=== PATIENT | female | born 1970 | race Caucasian/White ===

== ENCOUNTER 2016-12-27 08:36 | Outpatient (CLI) | payer SELFPAY | END 2016-12-27 08:37 | disposition home or self-care (01) | LOC: LAB 08:36 | DX: Z01.89 Encounter for other specified special examinations (principal) | CPT/HCPCS: 36415 ==

== ENCOUNTER 2017-04-14 07:28 | Outpatient (CLI) | payer SELFPAY | END 2017-04-14 07:29 | disposition home or self-care (01) | LOC: LAB 07:28 | DX: Z01.89 Encounter for other specified special examinations (principal) | CPT/HCPCS: 36415 ==

== ENCOUNTER 2017-06-06 06:16 | Emergency (ER) | payer BC ==
[2017-06-06] MEDS ORDERED: ACETAMINOPHEN 325 MG TABLET PO STA (07:06)
--- NOTE | 2017-06-06 07:55 | XRAY Report ---
EXAM: CHEST RADIOGRAPHY EXAM DATE: 06/06/2017 07:40 AM. CLINICAL HISTORY: Cough and fever. COMPARISON: None. TECHNIQUE: 2 views. FINDINGS: Lungs/Pleura: No focal opacities evident. No pleural effusion. No pneumothorax. Normal volumes. Mediastinum: Heart and mediastinal contours are unremarkable. Other: None. IMPRESSION: Normal 2-view chest radiography for age. [facility] Referring Provider Line: [phone] SITE ID: [id number]
--- NOTE | 2017-06-06 08:16 | ED Physician Documentation ---
History of Present Illness - Stated complaint Stated Complaint: COUGH/FEVER/BODY ACHES - Chief complaint Chief Complaint: Resp - Additonal information Additional information: hx from pt 47 female to ER with 3 days of fever to 102.5 congestion, mylagias, productive cough, post -tussive nausea no leg edema denies preg Review of Systems Constitutional: reports: Fever, Chills, Myalgias, Fatigue Nose: reports: Congestion Respiratory: reports: Cough GI: reports: Nausea. 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 - Present Medications Home Medications: Ambulatory Orders Medication Instructions Recorded Confirmed Control Pill 1 tab PO DAILY 10/29/13 10/29/13 Benzonatate [Tessalon] 100 mg PO TID PRN #20 capsule 06/06/17 guaiFENesin/DEXTROMETHORPHAN 10 ml PO Q6H PRN #120 ml 06/06/17 [Robitussin Dm] - Allergies Allergies/Adverse Reactions: Allergies Allergy/AdvReac Type Severity Reaction Status Date / Time No Known Drug Allergies Allergy Verified 10/29/13 18:11 - Social History Does the pt smoke?: No Smoking Status: Never smoker Does the pt drink ETOH?: Yes Does the pt have substance abuse?: No - POLST Patient has POLST: No PD ED PE NORMAL - Vitals Vital signs reviewed: Yes - General General: Alert and oriented X 3 - Neck Neck: Supple, no meningeal sign - Cardiac Cardiac: RRR - Respiratory Respiratory: No respiratory distress, Clear bilaterally, Other (coarse but no focal wheeze or ronchi) - Abdomen Abdomen: Soft - Extremities Extremities: No edema, No calf tenderness / cord - Neuro Neuro: Alert and oriented X 3 Results - Vitals Vitals: Vital Signs - 24 hr 06/06/17 06:21 Temperature 38.0 C H Heart Rate 103 H Respiratory 18 Rate Blood Pressure 149/94 H O2 Saturation 98 Oxygen O2 Source Room air - Labs Labs: Laboratory Tests 06/06/17 06:47 Influenza A (Rapid) Negative Influenza B (Rapid) Negative Influenza Types A,B Ag - - Rads (name of study) CXR Radiology: See rad report (NACPD) PD MEDICAL DECISION MAKING - ED course ED course: neg flu neg CXR lieky viral will tx symptomatically Departure - Departure Disposition: 01 Home, Self Care Clinical Impression: Bronchitis Condition: Good Instructions: ED Viral Syndrome Prescriptions: Benzonatate [Tessalon] 100 mg PO TID PRN #20 capsule PRN Reason: to ease cough guaiFENesin/DEXTROMETHORPHAN [Robitussin Dm] 10 ml PO Q6H PRN #120 ml PRN Reason: Cough Comments: The flu swabs were negative and the chest xray did not show pneumonia. So this infection is likely viral That does not make you any less ill than if it was a bacterial infection such as pneumonia - but it does mean that antibiotics won't help I have prescribed some medication to ease your symptoms Forms: Activity restrictions
[2017-06-06] MEDS ORDERED: guaiFENesin/DEXTROMETHORPHAN 10 ML UDC PO STA (08:18)
[2017-06-06] MEDS ORDERED: BENZONATATE 100 MG CAPSULE PO STA (08:18)
[2017-06-06 09:00] VITALS: BP 133/105
== END 2017-06-06 09:01 | disposition home or self-care (01) ==
LOC: ED 06:16
DX: J40 Bronchitis, not specified as acute or chronic (principal)
CPT/HCPCS: 71046; 87275; 87276; 99283; A9270

== ENCOUNTER 2017-07-18 10:27 | Outpatient (CLI) | payer BC ==
--- NOTE | 2017-07-18 12:47 | Ultrasound Report ---
PELVIC ULTRASOUND: 07/18/2017 CLINICAL INDICATION: Dysmenorrhea. TECHNIQUE: Transabdominal pelvic ultrasound performed for global evaluation. Transvaginal pelvic ultrasound performed for detailed evaluation. Real-time scanning performed and static images obtained. FINDINGS: The uterus is anteverted, measuring 9.7 x 5.6 x 4.6 cm. The endometrium measures 11 mm. There is an anterior subserosal 1.8 x 1.5 x 1.5 cm leiomyoma, and a right lateral intramural 1.8 x 1.7 x 1.6 cm leiomyoma. The right ovary measures 2.2 x 1.9 x 1.6 cm, and appears unremarkable. The left ovary measures 3.3 x 3.4 x 2.1 cm, and contains a 1.8 cm hemorrhagic follicle. A small amount of free fluid is noted in the cul-de-sac. IMPRESSION: SMALL LEIOMYOMAS. HEMORRHAGIC LEFT OVARIAN FOLLICLE. SMALL AMOUNT OF FREE FLUID. TD: 07/18/2017 12:46
== END 2017-07-18 10:28 | disposition home or self-care (01) ==
LOC: DI 10:27
PROVIDERS: ATTEND Physician Assistant
DX: N94.6 Dysmenorrhea, unspecified (principal); D25.1 Intramural leiomyoma of uterus; D25.2 Subserosal leiomyoma of uterus
CPT/HCPCS: 76830; 76856

== ENCOUNTER 2017-07-21 07:42 | Outpatient (CLI) | payer SELFPAY | END 2017-07-21 07:43 | disposition home or self-care (01) | LOC: LAB 07:42 | DX: Z01.89 Encounter for other specified special examinations (principal) | CPT/HCPCS: 36415 ==

== ENCOUNTER 2017-11-14 15:32 | Outpatient (CLI) | payer BC ==
--- NOTE | 2017-11-14 16:26 | XRAY Report ---
Reason: R FOOT PAIN Procedure Date: 11/14/2017 Accession Number: [id number] / [id number] Procedure: XR - Foot 3 View RT CPT Code: FULL RESULT: EXAM: RIGHT FOOT RADIOGRAPHY EXAM DATE: 11/14/2017 04:06 PM. CLINICAL HISTORY: R FOOT PAIN. COMPARISON: None. TECHNIQUE: 3 views. FINDINGS: Bones: Normal. No fractures or bone lesions. Joints: Normal. No subluxations. Soft Tissues: Unremarkable. IMPRESSION: Normal foot radiography. [facility]
== END 2017-11-14 15:33 | disposition home or self-care (01) ==
LOC: DI 15:32
PROVIDERS: ATTEND Physician Assistant
DX: M79.671 Pain in right foot (principal)

== ENCOUNTER 2017-11-28 14:36 | Outpatient (CLI) | payer SELFPAY | END 2017-11-28 14:37 | disposition home or self-care (01) | LOC: LAB 14:36 | DX: Z01.89 Encounter for other specified special examinations (principal) | CPT/HCPCS: 36415 ==

== ENCOUNTER 2019-12-26 07:36 | Outpatient (CLI) | payer BC ==
[2019-12-26 08:23] LABS: CHOL/HDL RATIO 3.7 (<4.4); CHOLESTEROL 289 mg/dL; HDL CHOLESTEROL 78 mg/dL; LDL CHOLESTEROL,CALCULATED 202 mg/dL; LDL/HDL RATIO 2.6 (<4.4); VLDL CHOLESTEROL 9 mg/dL
[2019-12-26 08:32] LABS: CRP - C-REACTIVE PROTEIN < 1.0 mg/dL (0-1.0)
[2019-12-26 08:48] LABS: THYROID STIMULATING HORMONE 0.09 uIU/mL (0.34-5.60)
[2019-12-26 08:50] LABS: FREE T3 3.02 pg/mL (2.5-3.9); FREE T4 (FREE THYROXINE) 0.8 ng/dL (0.58-1.64)
[2019-12-27 05:51] LABS: PROGESTERONE 4.2 ng/mL
== END 2019-12-26 07:37 | disposition home or self-care (01) ==
LOC: LAB 07:36
DX: N95.1 Menopausal and female climacteric states (principal); E27.1 Primary adrenocortical insufficiency; E03.9 Hypothyroidism, unspecified
CPT/HCPCS: 36415; 80061; 82533; 82627; 82670; 82679; 83721; 84144; 84270; 84402; 84403; 84439; 84443; 84481; 84482; 85384; 86140

== ENCOUNTER 2020-06-12 09:17 | Outpatient (CLI) | payer BC | END 2020-06-12 09:18 | disposition home or self-care (01) | LOC: LAB 09:17 | PROVIDERS: ATTEND Internal Medicine | DX: Z01.89 Encounter for other specified special examinations (principal) | CPT/HCPCS: 36415 ==

== ENCOUNTER 2020-07-01 07:44 | Outpatient (CLI) | payer BC ==
[2020-07-01 15:50] LABS: T4 (THYROXINE) 5.06 ug/dL (6.09-12.23)
[2020-07-01 15:53] LABS: THYROID STIMULATING HORMONE 1.56 uIU/mL (0.34-5.60)
[2020-07-01 15:55] LABS: FREE T3 2.8 pg/mL (2.5-3.9); FREE T4 (FREE THYROXINE) 0.6 ng/dL (0.58-1.64)
[2020-07-04 14:56] LABS: THYROID PEROXIDASE ANTIBODIES 1 IU/mL (<9)
== END 2020-07-01 07:45 | disposition home or self-care (01) ==
LOC: LAB.S 07:44
PROVIDERS: ATTEND Nurse Practitioner Family
DX: F41.9 Anxiety disorder, unspecified (principal); I10 Essential (primary) hypertension; M72.2 Plantar fascial fibromatosis; E03.9 Hypothyroidism, unspecified
CPT/HCPCS: 36415; 81599; 84436; 84439; 84443; 84479; 84481; 84482; 86376; 86800

== ENCOUNTER 2020-08-06 07:02 | Outpatient (CLI) | payer BC ==
[2020-08-06 15:35] LABS: FREE T3 3.1 pg/mL (2.5-3.9)
[2020-08-06 15:36] LABS: FREE T4 (FREE THYROXINE) 0.64 ng/dL (0.58-1.64)
[2020-08-08 15:41] LABS: THYROID PEROXIDASE ANTIBODIES 1 IU/mL (<9)
== END 2020-08-06 07:03 | disposition home or self-care (01) ==
LOC: LAB.S 07:02
PROVIDERS: ATTEND Nurse Practitioner Family
DX: E03.2 Hypothyroidism due to medicaments and other exogenous substances (principal); R53.83 Other fatigue
CPT/HCPCS: 36415; 81599; 84436; 84439; 84443; 84479; 84481; 84482; 86376; 86800

== ENCOUNTER 2021-01-02 08:41 | Outpatient (CLI) | payer BC ==
[2021-01-02 16:18] LABS: THYROID STIMULATING HORMONE 1.27 uIU/mL (0.34-5.60)
[2021-01-02 16:20] LABS: FREE T3 2.96 pg/mL (2.5-3.9); FREE T4 (FREE THYROXINE) 0.61 ng/dL (0.58-1.64)
== END 2021-01-02 08:42 | disposition home or self-care (01) ==
LOC: LAB.S 08:41
PROVIDERS: ATTEND Internal Medicine
DX: E03.9 Hypothyroidism, unspecified (principal)
CPT/HCPCS: 36415; 84439; 84443; 84481; 84482

== ENCOUNTER 2021-02-17 07:54 | Outpatient (CLI) | payer OTHER ==
[2021-02-17 14:49] LABS: THYROID STIMULATING HORMONE 1.41 uIU/mL (0.34-5.60)
[2021-02-17 15:23] LABS: FREE T3 2.64 pg/mL (2.5-3.9)
[2021-02-17 15:25] LABS: FREE T4 (FREE THYROXINE) 0.47 ng/dL (0.58-1.64)
[2021-02-20 13:25] LABS: T3 REVERSE 7 ng/dL (8-25)
[2021-02-20 15:31] LABS: EBV VIRAL CAPSID AB VCA IGG >750.00 U/mL
== END 2021-02-17 07:55 | disposition home or self-care (01) ==
LOC: LAB.S 07:54
PROVIDERS: ATTEND Internal Medicine
DX: A69.20 Lyme disease, unspecified (principal); R53.83 Other fatigue; E03.9 Hypothyroidism, unspecified
CPT/HCPCS: 36415; 81599; 84439; 84443; 84481; 84482; 86357; 86665; 86790

== ENCOUNTER 2022-05-11 18:36 | Emergency (ER) | payer OTHER ==
[2022-05-11 18:51] VITALS: BP 112/80
--- NOTE | 2022-05-11 20:29 | XRAY Report ---
PROCEDURE: Toe(s) LT INDICATIONS: L 5th toe injury TECHNIQUE: AP view of the foot and 2 additional views of the fifth toe acquired. COMPARISON: None. FINDINGS: Bones: There is a mildly displaced spiral fracture of the fifth proximal phalanx with mild lateral at tenuation. No dislocations. No suspicious bony lesions. Soft tissues: No suspicious soft tissue densities. IMPRESSION: 1. Mildly displaced and angle related fractures of the fifth proximal phalanx. Reviewed by: Boaz Bell MD on 05/11/2022 8:28 PM PST Approved by: Boza Bell MD on 05/11/2022 8:28 PM [facility] Station ID: [id number]
[2022-05-11] MEDS: HYDROcod/ACET 5/325 Prepack 4 PO STA (21:06)
--- NOTE | 2022-05-11 21:06 | ED Physician Documentation ---
PD HPI LOWER EXT INJURY - Stated complaint Stated Complaint: LT TOE INJ - Chief complaint Chief Complaint: Trauma Ext - History obtained from History obtained from: Patient, Family - History of Present Illness PD HPI LOW EXT INJURY LOCATION: Left, Toe Pain level max: 5 Pain level now: 4 - Additional information Additional information: 52-year-old female presents to the emergency department the left fifth toe injury. She excellently jammed it on a piece of furniture about 5 PM today. She states that her "straightened it out". Worse with walking, better with rest. No other injuries. 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 - Present Medications Home Medications: Ambulatory Orders Medication Instructions Recorded Confirmed Control Pill 1 tab PO DAILY 10/29/13 10/29/13 Benzonatate [Tessalon] 100 mg PO TID PRN #20 capsule 06/06/17 guaiFENesin/DEXTROMETHORPHAN 10 ml PO Q6H PRN #120 ml 06/06/17 [Robitussin Dm] - Allergies Allergies/Adverse Reactions: Allergies Allergy/AdvReac Type Severity Reaction Status Date / Time No Known Drug Allergies Allergy Verified 05/11/22 18:47 - Social History Does the pt smoke?: No Smoking Status: Never smoker Does the pt drink ETOH?: Yes Does the pt have substance abuse?: No - Immunizations Immunizations are current?: Yes - POLST Patient has POLST: No PD ED PE NORMAL - Vitals Vital signs reviewed: Yes - General General: Alert and oriented X 3, No acute distress - Derm Derm: Warm and dry - Extremities Extremities: Other (Left fifth digit mildly deformed. Neurovascular intact. No bruising. No swelling. Otherwise normal examination of the left foot) - Neuro Neuro: Alert and oriented X 3 Results - Vitals Vitals: Vital Signs - 24 hr 05/11/22 18:47 Temperature 37 C Heart Rate 95 Respiratory 16 Rate Blood Pressure 112/80 O2 Saturation 97 Oxygen O2 Source Room air - Rads (name of study) L toe xray Radiology: Final report received, See rad report Procedures - Regional nerve block - Minor Nerve block site: Digital - note digit(s) (Left fifth toe) Right / left: Left Nerve block anesthesia: Marcaine 0.5% Nerve block aftercare: Excellent anesthesia, No complications PD Medical Decision Making - ED course Complexity details: considered differential, d/w patient ED course: 52-year-old female with a left fifth toe injury at home. X-ray confirms fracture. Proximal phalanx. 0.5% Marcaine was used as a digital block. Excellent anesthesia achieved. The toe was then abena taped to the fourth toe. Counseled to wear hard soled shoes at home. She has her own crutches. Declines pain medication here but is given a hydrocodone prepack. Neurovascular intact. Patient counseled regarding signs and symptoms for which I believe and urgent re-evaluation would be necessary. Patient with good understanding of and agreement to plan and is comfortable going home at this time This document was made in part using voice recognition software. While efforts are made to proofread this document, sound alike and grammatical errors may occur. Departure - Departure Disposition: 01 Home, Self Care Clinical Impression: Toe fracture, left Qualifiers: Encounter type: initial encounter Toe: lesser toe Fracture type: closed Phalanx: middle Fracture alignment: displaced Qualified Code(s): S92.522A - Displaced fracture of middle phalanx of left lesser toe(s), initial encounter for closed fracture Condition: Good Instructions: ED Fx Toe Closed Follow-Up: Elis Gillespie ND [Primary Care Provider] - Within 1 week Comments: Please follow-up with your doctor as needed for further care. Continue to abena tape the toe. Wear a stiff soled shoe. You can use the hydrocodone as given to you tonight for any pain. I am prescribing a short course of narcotic pain medication for you. These are potentially dangerous and addictive medications that should be used carefully. These medications may constipate you. Take an laak-wdu-heutzsx stool softener (docusate) twice daily with plenty of water while taking these medications. If you go 24 hours without a bowel movement, take ojlp-asn-djuhefy miralax, per package instructions. Do not drink or drive while taking these medications. If you received narcotic or sedating medications while in the emergency department, do not drive for 24 hours. Store this medication in a safe, secure place and out of reach of children. It is a violation of federal law to give or sell this medication to another person or to use in a manner other than prescribed. The ED will not refill narcotic prescriptions, including prescriptions lost or stolen. To dispose of unwanted medications: 1. [facility] [address] in [place] has a medication drop box. They accept prescription medications (in pill form) Tuesday through Tuesday 9:00 a.m. to 5:00 p.m. 2. The [facility] accepts prescription medications (in pill form only) for disposal year round. Call for more information. 3. Contact the [facility] for the next [facility] sponsored prescription drug collection event. , [phone], or [phone]; Discharge Date/Time: 05/11/22 21:15
[2022-05-11] MEDS: BUPIVACAINE 0.5% PF 10 ML VIAL SUBQ STA (21:07)
== END 2022-05-11 21:15 | disposition home or self-care (01) ==
LOC: ED 18:36
DX: S92.522A Displaced fracture of middle phalanx of left lesser toe(s), initial encounter for closed fracture (principal); W22.03XA Walked into furniture, initial encounter; Y92.9 Unspecified place or not applicable; E06.3 Autoimmune thyroiditis
CPT/HCPCS: 64450; 73660; 99283

== ENCOUNTER 2023-09-15 07:00 | Outpatient (CLI) | payer OTHER ==
--- NOTE | 2023-09-15 11:53 | XRAY Report ---
Knee 4+V LT HISTORY: 53 years of age, LEFT KNEE PAIN/EDEMA TECHNIQUE: Knee 4+V LT COMPARISON: None. FINDINGS/IMPRESSION: Moderate patellofemoral compartment predominant osteoarthritis. Small knee effusion. Small lucency pr ojecting over the medial femoral condyle, nonspecific. No acute fracture or dislocation. Reviewed by: Jeannie Ellsworth MD on 09/15/2023 11:52 AM PDT Approved by: Jeannie Ellsworth MD on 09/15/2023 11:52 AM PDT Station ID: [id number]
== END 2023-09-15 23:59 | disposition home or self-care (01) ==
LOC: DI.S 07:00
PROVIDERS: ATTEND Registered Nurse
DX: M17.12 Unilateral primary osteoarthritis, left knee (principal); M25.462 Effusion, left knee